=== PATIENT | male | born 1980 | race African-American/Black ===

== ENCOUNTER 2016-09-28 23:35 | Emergency (ER) | payer OTHER ==
--- NOTE | ~2016-09-28 | CR21 ---
[facility] A Service of [facility] & [facility] RADIOLOGY TEXT RESULTS PATIENT: JAVIER CORREIA LOCATION: [facility] : 76 UNIT #: [id number] AGE: [address]: Candelaria Blake APRN SEX: M ORDER DR: [id number] [facility] [address]. [place], [place] [address] [id number] MR#: [id number] Acc #: [id number] NAME: JAVIER CORREIA : 1980 SEX: M STUDY DATE/TIME: UNIT: [facility] ROOM: STUDY DESCRIPTION: CR Ankle Min 3 Views Rt Attending Physician: Candelaria Blake A.P.R.N. Ordering Physician: Jose Manuel Ely M.D. Primary Care Physician: Primary Care Physician No MEDICAL IMAGING REPORT This report is preliminary unless electronic signature is present EXAM Right ankle 09/29 at 0028 hours INDICATIONS Lateral ankle pain after soccer injury today. Patient heard a pop. FINDINGS 3 views of the right ankle were obtained. There is an oblique minimally displaced fracture of the distal fibula. No other acute fractures are seen. The mortise is intact. There is some associated lateral soft tissue swelling. IMPRESSION Oblique minimally displaced fracture of the distal fibula with soft tissue swelling. Dictated by... Maximiliano Villalobos Jr., M.D. THIS IS AN ELECTRONICALLY VERIFIED REPORT Maximiliano Villalobos Jr., M.D. at 09/29/2016 9:22 PM RLK/vivi TD: 09/29/2016 11:55 JOB #: [id number] MEDICAL IMAGING REPORT Page 1 of 1 COPY
[2016-09-30] MEDS ORDERED: NO MEDICATIONS (11:01)
[2016-10-02] MEDS ORDERED: HYDROCODON-ACE1 EAC7 PO (12:37)
[2016-10-02] MEDS ORDERED: IBUPROFEN800 MG PO (12:38)
== END 2016-09-29 03:40 | disposition home or self-care (01) ==
LOC: CED 23:35 → CFTX 23:59 → CED 23:59
DX: S82.831A Other fracture of upper and lower end of right fibula, initial encounter for closed fracture (principal); X50.1XXA Overexertion from prolonged static or awkward postures, initial encounter; Y93.66 Activity, soccer; Y92.9 Unspecified place or not applicable
CPT/HCPCS: 29515; 73610; 99283

== ENCOUNTER → 2016-10-02 | Day surgery (SDC) | payer SELFPAY ==
[~2016-10-02] MED LIST: HYDROCODON-ACE1 EAC7 PO; IBUPROFEN800 MG PO; NO MEDICATIONS
--- NOTE | ~2016-10-02 | OR ---
Unit #: [id number] #: [id number] Patient: CLAUDIO CORREIA [id number] [address] [place], [place] [address] [id number] O MR#: [id number] NAME: CLAUDIO CORREIA ROOM: Date of Procedure: 10/02/2016 Admission Date: 10/02/2016 Surgeon: Chinmay Steele M.D. : 1980 Attending Physician: Chinmay Steele M.D. Primary Care Physician: Primary Care Physician No OPERATIVE REPORT PREOPERATIVE DIAGNOSIS Right bimalleolar equivalent ankle fracture with displaced distal fibula fracture. POSTOPERATIVE DIAGNOSIS Right bimalleolar equivalent ankle fracture with displaced distal fibula fracture. PROCEDURES PERFORMED Open reduction and internal fixation of right distal fibular fracture. [employer] Karena Diaz. ANESTHESIA General with popliteal nerve block. IMPLANTS Dory 1/3 semitubular plate, seven hole. ESTIMATED BLOOD LOSS Minimal. COMPLICATIONS None apparent. INDICATIONS FOR PROCEDURE Claudio is a 36-year-old gentleman, who has sustained a fracture to his right fibula while playing soccer. He had slight medial clear space widening and a typical Hardin B type appearance to his distal fibula fracture. An external rotation stress test was performed in the office and demonstrated increased medial clear space widening further consistent with a bimalleolar equivalent ankle injury. We discussed operative intervention. He elected to proceed. DESCRIPTION OF PROCEDURE The patient was identified in the preoperative holding area. The operative site was marked. Preoperative antibiotics were administered. A regional block was performed. The patient was brought to the operating room and placed supine on the operating table. A general anesthetic was induced. The right leg was identified. A tourniquet was applied. The right leg was prepped and draped in sterile fashion. Unit #: [id number] #: [id number] Patient: CLAUDIO CORREIA An incision was made in a longitudinal fashion over the fibula. Dissection was carried down through subcutaneous tissues. There was a crossing structure very low distal at the fibula. This appeared to be consistent with a low crossing superficial peroneal nerve. This was dissected and preserved throughout the procedure. The fracture was identified and reduced with a pointed tenaculum clamp. A lag screw was placed prior to provisional fixation. The plate of the desired size was selected and applied over the lateral aspect of the bone. During plate application, the fracture had actually initially displaced and we lost our lag screw; therefore, this was removed. The fracture was re-clamped and the plate reapplied without the lag screw present. In this instance, the fracture was held in anatomically reduced position and the plate was secured both proximally and distally. Distally, we ultimately placed 2 fully-threaded cancellous screws and proximally we placed 3 fully-threaded nonlocking cortical screws. Final imaging was obtained and demonstrated an anatomic reduction of the fracture. An external rotation stress test was performed and the ankle mortise was stable. The formal deltoid ligament repair was not indicated or required. The wound was irrigated with sterile saline. The wound was then closed in a layered fashion with 2-0 Vicryl and nylon. The patient was placed in a well-padded posterior splint. DISPOSITION Stable to the recovery room. Dictated by... Ada Bravo/riley TD: 10/03/2016 02:25 JOB #: [id number] OPERATIVE REPORT Page 1 of 1 X Chinmay Steele MD X PROCEDURE OPERATIVE NOTE
--- NOTE | ~2016-10-02 | CR18 ---
[facility] A Service of [facility] & [facility] RADIOLOGY TEXT RESULTS PATIENT: JAVIER CORREIA LOCATION: [facility] : 76 UNIT #: [id number] AGE: [address]: Chinmay Steele MD SEX: M ORDER DR: [id number] [place] [id number] [facility]. [place], [place] [address] [id number] O MR#: [id number] Acc #: [id number] NAME: JAVIER CORREIA : 1980 SEX: M STUDY DATE/TIME: 10/02/2016 14:59 UNIT: [facility] ROOM: STUDY DESCRIPTION: CR Ankle 2 Views Rt Attending Physician: Chinmay Steele M.D. Ordering Physician: Chinmay Steele M.D. Primary Care Physician: No Primary Care Physician MEDICAL IMAGING REPORT This report is preliminary unless electronic signature is present EXAM C-arm fluoroscopy with 5 permanent images of the right ankle, 10/02/2016 HISTORY ORIF right distal fibula fracture. FINDINGS C-arm fluoroscopy was provided for use in the operating room. Five spot film radiographs of the right ankle were obtained in the anterior and lateral projections documenting placement of surgical plate and screws across the distal fibular fracture. 30 seconds of fluoroscopy time was utilized. Dictated by... Chinmay Escobar M.D. THIS IS AN ELECTRONICALLY VERIFIED REPORT Chinmay Escobar M.D. at 10/03/2016 6:18 AM BRUNA/peter TD: 10/03/2016 00:14 JOB #: [id number] MEDICAL IMAGING REPORT Page 1 of 1 COPY
== END | disposition home or self-care (01) ==
LOC: CSUR 12:07
DX: S82.61XA Displaced fracture of lateral malleolus of right fibula, initial encounter for closed fracture (principal); F17.210 Nicotine dependence, cigarettes, uncomplicated; Z88.2 Allergy status to sulfonamides; Z88.8 Allergy status to other drugs, medicaments and biological substances; Z79.891 Long term (current) use of opiate analgesic; Z79.1 Long term (current) use of non-steroidal anti-inflammatories (NSAID); Y93.66 Activity, soccer
CPT/HCPCS: 73600; 76000; C1713; J0690; J1100; J1885; J2250; J2795; J3010